=== PATIENT | female | born 1970 | race Caucasian/White ===

== ENCOUNTER → 2019-04-01 | Outpatient (CLI) | payer BC | LOC: MC.RAD 08:13 | DX: R92.0 Mammographic microcalcification found on diagnostic imaging of breast (principal) | CPT/HCPCS: 30634 ==

== ENCOUNTER → 2019-04-14 | Outpatient (CLI) | payer BC | LOC: MC.RAD 13:40 | DX: Z12.31 Encounter for screening mammogram for malignant neoplasm of breast (principal); C50.912 Malignant neoplasm of unspecified site of left female breast ==

== ENCOUNTER 2019-04-20 10:00 | Day surgery (SDC) | payer BC ==
[~2019-04-20] VITALS: Ht 170.2 cm; Wt 60.4 kg
[2019-04-20 11:51] VITALS: BP 127/80; PULSE 79; TEMP 98.1
[2019-04-20] MEDS ORDERED: GLUCOPHAGE1000 MG PO (12:00)
[2019-04-20] MEDS ORDERED: ZOCOR 10MG10 MG PO (12:01)
[2019-04-20] MEDS ORDERED: DEMADEX 20MG20 M1 PO (12:01)
[2019-04-20] MEDS ORDERED: K-DUR20 MEQ PO (12:01)
[2019-04-20] MEDS ORDERED: ZYRTEC 10MG10 MG PO (12:01)
[2019-04-20] MEDS ORDERED: ZOLOFT 50MG50 MG PO (12:02)
[2019-04-20] MEDS ORDERED: NP THYROID90 MG PO (12:02)
[2019-04-20] MEDS ORDERED: DESYREL 50MG50 MG PO (12:02)
[2019-04-20] MEDS ORDERED: ARMOUR THYROID120 MG PO (12:03)
[2019-04-20] MEDS ORDERED: NASONEX SPRAY17 GM NS (12:06)
[2019-04-20] MEDS ORDERED: MULTI VITAMINS1 TAB PO (12:07)
[2019-04-20] MEDS ORDERED: CALCIUM 600MG+D1 TAB PO (12:07)
[2019-04-20] MEDS ORDERED: NORCO 325 MG-51 TAB PO (14:18)
[2019-04-20 14:19] VITALS: BP 123/73; PULSE 78; TEMP 98.3
--- NOTE | 2019-04-20 14:19 | NUR ---
Pt to [facility] via cart from [place]. Pt drowsy, but awake. Denies pain or nausea. VSS. Dressing to left breast is clean, dry, and intact. Pt takes sips of water without difficulties. Side rails up x2. Call light within reach.
[2019-04-20 14:34] VITALS: BP 123/70; PULSE 72
--- NOTE | 2019-04-20 14:34 | NUR ---
Pt tolerating po fluids well. Pt denies pain or nausea. Will continue to monitor. Call light within reach.
[2019-04-20 14:49] VITALS: BP 120/75; PULSE 74
--- NOTE | 2019-04-20 14:49 | NUR ---
Kieler, pudding and soda given per pt request. Pt continues to rest. Denies needs. Call light within reach.
[2019-04-20 15:04] VITALS: BP 127/79; PULSE 73
--- NOTE | 2019-04-20 15:04 | NUR ---
Pt tolerated food and fluids without difficulties. Denies pain or nausea. Will continue to monitor. Call light within reach.
--- NOTE | 2019-04-20 15:40 | NUR ---
Pt up to restroom with stand by assistance. Pt voids without difficulties. Pt back to room. IV site discontinued with all parts intact. Pt up to dress. Call light within reach.
--- NOTE | 2019-04-20 16:00 | NUR ---
Discharge instructions reviewed. Pt voices understanding.
--- NOTE | 2019-04-20 16:15 | NUR ---
Pt escorted to private car via wheel chair. Pt accompanied home by her .
== END 2019-04-20 16:15 | disposition home or self-care (01) ==
LOC: SDCO 10:00
DX: D05.12 Intraductal carcinoma in situ of left breast (principal); N60.42 Mammary duct ectasia of left breast; E03.9 Hypothyroidism, unspecified; E78.00 Pure hypercholesterolemia, unspecified; Z90.710 Acquired absence of both cervix and uterus; Z90.79 Acquired absence of other genital organ(s); Z90.722 Acquired absence of ovaries, bilateral; Z79.899 Other long term (current) drug therapy; Z88.6 Allergy status to analgesic agent; Z88.2 Allergy status to sulfonamides; J45.909 Unspecified asthma, uncomplicated; E28.2 Polycystic ovarian syndrome
CPT/HCPCS: J0690; J1100; J2405; J2704; J3010; J7120